=== PATIENT | male | born 1995 | race Caucasian/White ===

== ENCOUNTER 2025-02-22 01:40 | Emergency (ER) | payer SELFPAY ==
[2025-02-22 01:53] LABS: #Basophils 0.03 10x3/uL (0.0-0.2); #Eosinophils 0.09 10x3/uL (0.0-0.7); #Monocytes 0.67 10x3/uL (0.11-0.59); #Neutrophils 4.55 10x3/uL (1.40-6.50); %Basophils 0.3 % (0.0-1.0); %Eosinophils 1.0 % (0.0-10.0); %Lymphocytes 37.7 % (21.0-51.0); %Monocytes 7.8 % (0.0-10.0); %Neutrophils 53.1 % (42.0-75.0); Hematocrit 43.8 % (42.0-52.0); Hemoglobin 14.5 g/dL (14.0-18.0); Mean Corpuscular Hemoglobin 29.4 pg (27.0-31.0); Mean Corpuscular Volume 88.8 fL (78.0-98.0); Platelet Count 204 10x3/uL (130-400); Red Blood Cell (RBC) Count 4.93 mill/uL (4.70-6.10); White Blood Cell (WBC) Count 8.59 10x3/uL (4.8-10.8)
[2025-02-22] MEDS ORDERED: Ketorolac Tromethamine 30 MG (1 mL) VIAL ONE (01:53)
[2025-02-22 02:18] LABS: ALT (SGPT) 19 U/L (Less than 45); AST (SGOT) 24 U/L (11-34); Albumin 4.5 g/dL (3.1-4.5); Alkaline Phosphatase 65 U/L (40-110); Anion Gap 15 mmol/L (10-20); BUN (Urea Nitrogen) 11 mg/dL (8.9-20.6); Bilirubin, Total 0.5 mg/dL (0.3-1.2); Calc. Creatinine Clearance 0 mL/min (70-130); Calcium 9.8 mg/dL (7.8-10.44); Carbon Dioxide 20 mmol/L (22-29); Chloride 109 mmol/L (98-107); Globulin 2.4 g/dL (2.4-3.5); Glucose 92 mg/dL (70-105); Potassium 3.8 mmol/L (3.5-5.1); Sodium 140 mmol/L (136-145)
[2025-02-22 02:58] LABS: Bacteria/HPF None Seen HPF (None Seen); CAUTI Indications for Culture Pelvic or flank pain; Glucose, Urine (Dipstick) Normal (Negative); Leukocyte Negative Leu/uL (Negative); Protein, Urine (Dipstick) Negative (Neg-Trace); RBC/HPF 0-3 HPF (0-3); Specific Gravity, Urine 1.019 (1.002-1.036); WBC/HPF 0-3 HPF (0-3)
[2025-02-22 03:15] LABS: Urine Culture Reflex No No
== END 2025-02-22 03:33 | disposition home or self-care (01) ==
LOC: ERS 01:40
DX: R07.9 Chest pain, unspecified (principal); M25.512 Pain in left shoulder; V40.5XXA Car driver injured in collision with pedestrian or animal in traffic accident, initial encounter
CPT/HCPCS: 71045; 80053; 81001; 84484; 85025; 93005; 96374; 96375; J1885; J3010